=== PATIENT | female | born 1945 | race Caucasian/White ===

== ENCOUNTER 2017-07-07 13:27 | Emergency (ER) | payer BC, OTHER ==
[2017-07-07 13:46] VITALS: TEMP 97.9
--- NOTE | 2017-07-07 14:30 | EDPHY ---
H & P Stated Complaint: DIZZINESS/FALL Time Seen by Provider: 07/07/17 14:01 HPI/ROS: Chief Complaint: Dizziness status post fall HPI: 72-year-old woman has been having intermittent dizziness for the last week. Patient states that she slipped and fell on the ice a week ago. She struck the back of her head. She did not have a loss of consciousness. Ever since that time she has had intermittent dizziness. Primarily worse when she is lying down. She is waking up in the morning feeling dizzy. She is describing as feeling as the day room is spinning. She has had some nausea but no vomiting. States that the symptoms last for couple hours and then go away. She also has some neck and back pain immediately after the injury but these have since gone away. No chest pain or shortness of breath. No numbness or weakness. No neck pain. ROS: 10 point Review of Systems is negative except as noted in the HPI. PMH: Hyperlipidemia Social History: No smoking, no alcohol, no recreational drug use Family History: non-contributory Physical Exam: Gen: Awake, Alert, No Distress HEENT: Nose: no rhinorrhea Eyes: PERRLA, EOMI, no nystagmus Mouth: Moist mucosa Neck: Supple, no JVD Chest: nontender, lungs clear to auscultation Heart: S1, S2 normal, no murmur Abd: Soft, non-tender, no guarding Back: no CVA tenderness, no midline tenderness Ext: no edema, non-tender Skin: no rash Neuro: CN II-XII intact, Sensation grossly intact, Strength 5/5 in bilateral upper and lower extremities, she has a negative Mineral-Hallpike test - Personal History Current Tetanus Diphtheria and Acellular Pertussis (TDAP): Unsure - Medical/Surgical History Hx Asthma: No Hx Chronic Respiratory Disease: No Hx Diabetes: No Hx Cardiac Disease: No Hx Renal Disease: No Hx Cirrhosis: No Hx Alcoholism: No Hx HIV/AIDS: No Hx Splenectomy or Spleen Trauma: No Other PMH: Past medical history: High cholesterol, HYSTERECTOMY, TONSILECTOMY - Social History Smoking Status: Never smoked Constitutional: Initial Vital Signs Temperature (C) 36.6 C 07/07/17 13:44 Heart Rate 85 07/07/17 13:44 Respiratory Rate 16 07/07/17 13:44 Blood Pressure 164/71 H 07/07/17 13:44 O2 Sat (%) 96 07/07/17 13:44 O2 Delivery Mode Room Air Allergies/Adverse Reactions: No Known Allergies Allergy (Unverified 10/02/14 10:10) Home Medications: Medication Instructions Recorded Lipitor 07/07/17 Medical Decision Making - Diagnostics Imaging Results: CT scan of the brain is normal per Dr. Harvey. Imaging: Discussed imaging studies w/ call center coordinator Radiologist ED Course/Re-evaluation: 72-year-old with intermittent vertiginous symptoms after a fall week ago. Symptoms consistent with benign positional vertigo. CT scan of the brain is unremarkable at this time. She is not currently symptomatic. I have given her instructions for the Emilie maneuver should her symptoms return. She will return to the emergency depart for any concerns. Otherwise she will follow up with primary care physician Departure - Departure Disposition: Home, Routine, Self-Care Clinical Impression: Benign positional vertigo Condition: Good Instructions: Benign Paroxysmal Positional Vertigo (ED) Additional Instructions: Follow up with primary care physician in 2-3 days for re-evaluation. Return to the emergency depart for increasing headache, nausea, vomiting, dizziness, or any other concerns. If your dizziness returns perform the Emilie maneuver as described below: Emilie Maneuver If your vertigo comes from your left ear and side: Sit on the edge of your bed. Turn your head 45 degrees to the left (not as far as your left shoulder). Place a pillow under you so when you lie down, it rests between your shoulders rather than under your head. Quickly lie down on your back, with your head on the bed (still at the 45- degree angle). The pillow should be under your shoulders. Wait 30 seconds (for any vertigo to stop). Turn your head retirement (90 degrees) to the right without raising it. Wait 30 seconds. Turn your head and body on its side to the right, so you're looking at the floor. Wait 30 seconds. Slowly sit up, but remain on the bed a few minutes. If the vertigo comes from your right ear, reverse these instructions. Sit on your bed, turn your head 45 degrees to the right, and so on. Do these movements three times before going to bed each night, until you've gone 24 hours without dizziness. Referrals: Spring Maldonado MD [Primary Care Provider] - As per Instructions
[2017-07-07 14:59] VITALS: BP 144/88; PULSE 76; O2SAT 95
[2017-07-07 15:19] VITALS: RESP 20
== END 2017-07-07 15:27 | disposition home or self-care (01) ==
LOC: CED 13:27
DX: H81.10 Benign paroxysmal vertigo, unspecified ear (principal)
CPT/HCPCS: 70450-PO

== ENCOUNTER → 2017-07-12 | Outpatient (CLI) | payer OTHER | LOC: CIMAGING 08:19 | PROVIDERS: ATTEND Internal Medicine | DX: Z12.31 Encounter for screening mammogram for malignant neoplasm of breast (principal) | CPT/HCPCS: G0202 ==

== ENCOUNTER → 2017-08-03 | Outpatient (CLI) | payer OTHER | LOC: CIMAGING 13:27 | PROVIDERS: ATTEND Internal Medicine | DX: R92.8 Other abnormal and inconclusive findings on diagnostic imaging of breast (principal) | CPT/HCPCS: G0206 ==

== ENCOUNTER → 2018-11-25 | Outpatient (CLI) | payer OTHER | LOC: CIMAGING 07:48 | PROVIDERS: ATTEND Internal Medicine | DX: M81.0 Age-related osteoporosis without current pathological fracture (principal); E78.2 Mixed hyperlipidemia; K21.9 Gastro-esophageal reflux disease without esophagitis; L85.3 Xerosis cutis; K58.8 Other irritable bowel syndrome; D64.9 Anemia, unspecified; Z12.31 Encounter for screening mammogram for malignant neoplasm of breast ==